=== PATIENT | male | born 1950 ===

== ENCOUNTER → 2017-11-04 | Outpatient (CLI) | payer OTHER ==
--- NOTE | 2017-11-04 09:12 | CPEKG ---
Heart Rate: 68 RR Interval: 882 P-R Interval: 176 QRSD Interval: 92 QT Interval: 392 QTC Interval: 417 P Thompson: 74 QRS Thompson: 58 T Wave Thompson: 71 EKG Severity - NORMAL ECG - EKG Impression: SINUS RHYTHM Electronically Signed By: Neo Guevara 04-Nov-2017 11:01:30
== END ==
LOC: BCP 08:49
PROVIDERS: ATTEND Internal Medicine Endocrinology, Diabetes & Metabolism
DX: R00.9 Unspecified abnormalities of heart beat (principal)